=== PATIENT | female | born 1985 | race Caucasian/White ===

== ENCOUNTER 2018-05-01 07:56 | Emergency (ER) | payer BC ==
[2018-05-01 08:08] VITALS: BP 122/67; PULSE 85; TEMP 98.2; BMI 36.6
--- NOTE | 2018-05-01 08:40 | PDOC ---
History of Present Illness - History of Present Illness Initial Comments: The patient is a 33 year old female (currently 16 weeks , A1), with no significant PMH, who presents to the emergency department today complaining of yellow-tinged vaginal discharge for one day. Patient notes that earlier this morning she felt a carranza of yellow-tinged fluid discharge from her vagina while in the shower. Patient states that no blood was present, and the fluid did not have an odor. She admits to tasting the fluid, and notes it did not taste foul but was salty. Patient reports that this episode happened once more upon presenting to the ED today. She reports associated diffuse abdominal soreness. Patient does note that she was diagnosed with a UTI one week ago, and started Bactrim yesterday. She denies any history of STD. The patient denies chest pain, shortness of breath, headache and dizziness. Denies fever, chills, nausea, vomit, diarrhea and constipation. Denies dysuria, frequency, urgency and hematuria. Allergies: NKA Past surgical history: Fibroid removal Social history: No reported PCP: Not on staff OBGYN: Dr. Sully Benitez ([phone]) 05/01/18 09:31 <Nasreen Elliott - Last Filed: 05/01/18 11:51> - General History Source: Patient Exam Limitations: No Limitations <Sheeba Bach - Last Filed: 05/01/18 12:10> - General Chief Complaint: Vaginal Sxs Stated Complaint: 4 MONTHS VAGINAL LIQUID RELEASE Time Seen by Provider: 05/01/18 08:39 Past History <Nasreen Elliott - Last Filed: 05/01/18 11:51> - Past Medical History COPD: No - Suicide/Smoking/Psychosocial Hx Smoking History: Never smoked Information on smoking cessation initiated: No Hx Alcohol Use: No Drug/Substance Use Hx: No <Sheeba Bach - Last Filed: 05/01/18 12:10> - Past Medical History Allergies/Adverse Reactions: Allergies Allergy/AdvReac Type Severity Reaction Status Date / Time No Known Allergies Allergy Verified 05/01/18 08:45 Home Medications: Ambulatory Orders NK [No Known Home Medication] 05/01/18 Review of Systems - Review of Systems Comments:: GENERAL/CONSTITUTIONAL: No fever or chills. No weakness. HEAD, EYES, EARS, NOSE AND THROAT: No change in vision. No ear pain or discharge. No sore throat. CARDIOVASCULAR: No chest pain or shortness of breath. RESPIRATORY: No cough, wheezing, or hemoptysis. GASTROINTESTINAL: No nausea, vomiting, diarrhea or constipation. GENITOURINARY: +Yellow-tinged fluid discharge. No dysuria, frequency, or change in urination. MUSCULOSKELETAL: +Diffuse abdominal soreness. No joint or muscle swelling or pain. No neck or back pain. SKIN: No rash NEUROLOGIC: No headache, vertigo, loss of consciousness, or change in strength/ sensation. ENDOCRINE: No increased thirst. No abnormal weight change. HEMATOLOGIC/LYMPHATIC: No anemia, easy bleeding, or history of blood clots. ALLERGIC/IMMUNOLOGIC: No hives or skin allergy. 05/01/18 09:31 <Nasreen Elliott - Last Filed: 05/01/18 11:51> *Physical Exam - Vital Signs Last Vital Signs Temp Pulse Resp BP Pulse Ox 98.2 F 85 17 122/67 99 05/01/18 08:00 05/01/18 08:00 05/01/18 08:00 05/01/18 08:00 05/01/18 08:00 - Physical Exam Comments: GENERAL: The patient is in no acute distress. HEAD: Normal with no signs of trauma. EYES: PERRLA, EOMI, sclera anicteric, conjunctiva clear. ENT: Ears normal, nares patent, oropharynx clear without exudates. Moist mucous membranes. NECK: Normal range of motion, supple without lymphadenopathy, JVD, or masses. LUNGS: Breath sounds equal, clear to auscultation bilaterally. No wheezes, and no crackles. HEART:Regular rate and rhythm, normal S1 and S2 without murmur, rub or gallop. ABDOMEN: +Mild LLQ tenderness/discomfort on palpation. Soft, normoactive bowel sounds. No guarding, no rebound. No masses palpable. PELVIC: +Clear fluid in vaginal vault. +Physiologic discharge. No tenderness to ovaries. OS closed, without blood. EXTREMITIES: Normal range of motion, no edema. No clubbing or cyanosis. No erythema, or tenderness. NEUROLOGICAL: Cranial nerves II through XII grossly intact. Normal speech. No focal neurological deficits. MUSCULOSKELETAL: Back non-tender to palpation, no CVA tenderness SKIN: Warm, Dry, normal turgor, no rashes or lesions noted. 05/01/18 09:35 <Nasreen Elliott - Last Filed: 05/01/18 11:51> - Vital Signs Last Vital Signs Temp Pulse Resp BP Pulse Ox 98.2 F 85 17 122/67 99 05/01/18 08:00 05/01/18 08:00 05/01/18 08:00 05/01/18 08:00 05/01/18 08:00 <Sheeba Bach - Last Filed: 05/01/18 12:10> Moderate Sedation - Procedure Monitoring Vital Signs: Procedure Monitoring Vital Signs Temperature 98.2 F 05/01/18 08:00 Pulse Rate 85 05/01/18 08:00 Respiratory Rate 17 05/01/18 08:00 Blood Pressure 122/67 05/01/18 08:00 O2 Sat by Pulse Oximetry (%) 99 05/01/18 08:00 <Nasreen Elliott - Last Filed: 05/01/18 11:51> - Procedure Monitoring Vital Signs: Procedure Monitoring Vital Signs Temperature 98.2 F 05/01/18 08:00 Pulse Rate 85 05/01/18 08:00 Respiratory Rate 17 05/01/18 08:00 Blood Pressure 122/67 05/01/18 08:00 O2 Sat by Pulse Oximetry (%) 99 05/01/18 08:00 <Sheeba Bach - Last Filed: 05/01/18 12:10> ED Treatment Course - LABORATORY CBC & Chemistry Diagram: 05/01/18 09:20 05/01/18 09:20 - ADDITIONAL ORDERS Additional order review: Laboratory Results 05/01/18 08:30 Urine Color Yellow Urine Appearance Slcloudy Urine pH 5.0 Ur Specific [place] 1.023 Urine Protein Negative Urine Glucose (UA) Negative Urine Ketones Trace H Urine Blood Negative Urine Nitrite Negative Urine Bilirubin Negative Urine Urobilinogen Negative Ur Leukocyte Esterase 1+ H Urine WBC (Auto) 16 Urine RBC (Auto) 1 Ur Epithelial Cells Rare Urine Bacteria Rare Hyaline Casts 3 Urine Mucus Few - RADIOLOGY Radiograph Interpretation: EXAM#: TYPE/EXAM: RESULT: [id number] US/ LIMITED US [id number] US/ TRANSVAGINAL US PREG Vaginal fluid. IMPRESSION: Single live intrauterine , as described above with average sonographic gestational age of 16 weeks 4 days. heart activity was documented. Follow-up ultrasound is recommended to check anatomy The amount of amniotic fluid is subjectively within normal limits. Amniotic fluid index was not calculated There is suggestion of debris/blood clots adjacent to the internal cervical os for which close follow-up ultrasound and [employer] consult is needed. Normal sagittal length of the uterine cervix, measuring 3.4 cm without dilatation or funneling. Simple cyst in the right and left ovary, as described above. Reported By: Ladarius Hurd MD 05/01/18 11:50 05/01/18 11:51 <Nasreen Elliott - Last Filed: 05/01/18 11:51> - LABORATORY CBC & Chemistry Diagram: 05/01/18 09:20 05/01/18 09:20 <Sheeba Bach - Last Filed: 05/01/18 12:10> Medical Decision Making - Medical Decision Making 33 yo F 4 months presenting with ? vaginal d/c vs. uncontrolled urination Was dx with UTI last week Started bactrim yesterday 05/01/18 10:56 Laboratory Tests 05/01/18 05/01/18 05/01/18 08:30 09:20 09:20 WBC 11.3 H Hgb 11.3 Hct 35.8 Plt Count 280 Sodium 137 Potassium 4.1 Chloride 106 Carbon Dioxide 19 L Anion Gap 12 BUN 7 Creatinine 0.5 L Random Glucose 76 Urine Blood Negative Urine Nitrite Negative Ur Leukocyte Esterase 1+ H Urine WBC (Auto) 16 Urine RBC (Auto) 1 US 05/01/18 12:07 US with IUP, closed os, no funneling Evidence of UTI Will discharge to home Pt given copies of results Will follow up with ob today <Sheeba Bach - Last Filed: 05/01/18 12:10> *DC/Admit/Observation/Transfer - Attestations Scribe Attestion: Documentation prepared by SURENDRA Ann, acting as medical accounts receivable specialist for Sheeba Bach MD/. 05/01/18 09:35 <Nasreen Elliott - Last Filed: 05/01/18 11:51> - Discharge Dispostion Decision to Admit order: No <Sheeba Bach - Last Filed: 05/01/18 12:10> Diagnosis at time of Disposition: UTI (urinary tract infection) Qualifiers: Urinary tract infection type: site unspecified Hematuria presence: without hematuria Qualified Code(s): N39.0 - Urinary tract infection, site not specified - Discharge Dispostion Disposition: HOME Condition at time of disposition: Stable - Referrals Referrals: ON STAFF,NOT [Primary Care Provider] - - Patient Instructions Printed Discharge Instructions: DI for Vaginal Discharge, DI for Urinary Tract Infection (UTI) Additional Instructions: Thank you for coming in to the ER today Please be sure to follow up with your Financial Services Director Please continue to take the antibiotics she prescribed for you Please monitor yourself for abdominal pain, vaginal bleeding, more fluid. If you notice any concerning symptoms to you, please be sure to return to emergency department for reevaluation. - Post Discharge Activity Forms/Work/School Notes: Back to Work
[2018-05-01 09:00] LABS: URINE APPEARANCE SLCLOUDY; URINE BILIRUBIN NEGATIVE (<2.0 mg/dL); URINE COLOR YELLOW; URINE GLUCOSE (UA) NEGATIVE (NEGATIVE); URINE KETONE TRACE (NEGATIVE); URINE LEUK ESTERASE 1+ (NEGATIVE); URINE NITRITE NEGATIVE (NEGATIVE); URINE PROTEIN NEGATIVE (NEGATIVE); URINE UROBILINOGEN NEGATIVE mg/dL (0.2-1.0)
[2018-05-01 09:25] LABS: EPI CELLS RARE /HPF (FEW); URINE BACTERIA RARE /hpf (NONE SEEN); URINE HYALINE CAST 3 /lpf; URINE MUCUS FEW
[2018-05-01 09:36] LABS: BASO % 0.3 % (0-2.0); EOS % 0.2 % (0-4.5); HEMATOCRIT 35.8 % (32.4-45.2); HEMOGLOBIN 11.3 GM/dL (10.7-15.3); LYMPH % 15.7 % (8-40); MCH 26.9 pg (25.7-33.7); MCHC 31.5 g/dl (32.0-36.0); MEAN CELL VOLUME 85.6 fl (80-96); MONO % 5.4 % (3.8-10.2); NEUT % 78.4 % (42.8-82.8); PLATELET COUNT 280 K/MM3 (134-434); RBC 4.18 M/mm3 (3.60-5.2); RDW 15.5 % (11.6-15.6); WHITE BLOOD COUNT 11.3 K/mm3 (4.0-10.0)
[2018-05-01 10:35] LABS: ALBUMIN 3.2 g/dl (3.4-5.0); ALK PHOS 73 U/L (45-117); ANION GAP 12 MMOL/L (8-16); BILIRUBIN,TOTAL 0.2 mg/dL (0.2-1); BLOOD UREA NITROGEN 7 mg/dL (7-18); CALCIUM 8.7 mg/dL (8.5-10.1); CHLORIDE 106 mmol/L (98-107); CO2 19 mmol/L (21-32); CREATININE 0.5 mg/dL (0.55-1.3); GLUCOSE,RANDOM 76 mg/dL (74-106); POTASSIUM 4.1 mmol/L (3.5-5.1); SGOT/AST 15 U/L (15-37); SGPT/ALT 18 U/L (13-61); SODIUM 137 mmol/L (136-145); TOT PROT 7.2 g/dl (6.4-8.2)
== END 2018-05-01 12:19 | disposition home or self-care (01) ==
LOC: JER 07:56
DX: O26.892 Other specified pregnancy related conditions, second trimester (principal); O23.42 Unspecified infection of urinary tract in pregnancy, second trimester; O34.82 Maternal care for other abnormalities of pelvic organs, second trimester; N83.202 Unspecified ovarian cyst, left side; N83.201 Unspecified ovarian cyst, right side; Z3A.16 16 weeks gestation of pregnancy
CPT/HCPCS: 36415; 76815-TC; 76817-TC; 80053; 81003; 81015; 84702; 85025; 87086; 87491; 87591; 99283-25